=== PATIENT | female | born 1985 | race Two or more races ===

== ENCOUNTER 2019-07-15 10:24 | Emergency (ER) | payer OTHER ==
[2019-07-15 10:56] LABS: BILIRUBIN,URINE NEGATIVE (NEGATIVE); GLUCOSE, URINE (UA) NEGATIVE (NEGATIVE); KETONES,URINE (UA) NEGATIVE (NEGATIVE); LEUKOCYTE ESTERASE, URINE NEGATIVE (NEGATIVE); NITRITE,URINE NEGATIVE (NEGATIVE); OCCULT BLOOD,URINE TRACE-INTA (NEGATIVE); PH,URINE 5.5 PH (5.0-7.5); PROTEIN,URINE NEGATIVE (NEGATIVE); UROBILINOGEN,URINE 0.2 (NORMAL) E.U./dL (NORMAL)
[2019-07-15 10:57] LABS: BASOPHILS # (AUTO) 0.1 10^3/uL (0.0-0.1); BASOPHILS % (AUTO) 0.7 %; EOSINOPHILS # (AUTO) 0.1 10^3/uL (0.0-0.7); EOSINOPHILS % (AUTO) 0.6 %; LYMPHOCYTES # (AUTO) 2.1 10^3/uL (1.5-3.5); LYMPHOCYTES % (AUTO) 24.1 %; MEAN CORPUSCULAR HEMOGLOBIN 30.4 pg (27.0-31.0); MEAN CORPUSCULAR HGB CONC 33.7 g/dL (32.0-36.0); MEAN PLATELET VOLUME 9.4 fL (7.9-10.8); MONOCYTES # (AUTO) 0.5 10^3/uL (0.0-1.0); MONOCYTES % (AUTO) 6.1 %; NEUTROPHILS # (AUTO) 5.9 10^3/uL (1.5-6.6); PLT - PLATELET COUNT 319 10^3/uL (130-450); RED BLOOD COUNT 4.61 10^6/uL (4.20-5.40); RED CELL DISTRIBUTION WIDTH 12.4 % (12.0-15.0); WHITE BLOOD COUNT 8.7 x10^3/uL (4.8-10.8)
[2019-07-15 11:02] LABS: CLARITY,URINE CLEAR (CLEAR); HCG UR QUAL NEGATIVE
[2019-07-15 11:10] LABS: ALBUMIN 4.3 g/dL (3.2-5.5); ALBUMIN/GLOBULIN RATIO 1.2 (1.0-2.2); BILIRUBIN,TOTAL 0.6 mg/dL (0.2-1.0); CALCIUM 9.1 mg/dL (8.5-10.3); CREATININE 0.7 mg/dL (0.4-1.0); TOTAL PROTEIN 7.8 g/dL (6.7-8.2)
[2019-07-15] MEDS ORDERED: SODIUM CHLORIDE 0.9% 1,000 ML IV ONE (11:10)
--- NOTE | 2019-07-15 11:13 | ED Physician Documentation ---
History of Present Illness - Stated complaint Stated Complaint: LOWER BACK PX - Chief complaint Chief Complaint: Abd Pain - History obtained from History obtained from: Patient - Additonal information Additional information: There is a 33-year-old woman who presents with her from her physician's office for evaluation of a possible kidney stone. The patient started to get pain in her right flank 2 days ago she thought it was a muscle pain she was putting heat on it and her was massaging it she took a muscle relaxer last night did not seem to help and the pain was getting more severe today and wrapping around into her right abdomen. She says there is a constant dull ache but she will get intermittent sharp pains that are "unbearable". Now it is about a 3-4 out of 10. She denies any dysuria or hematuria. She has been nauseous but has not had vomiting or diarrhea. Denies with a last menstrual period of 3 weeks ago. She did get a shot of Toradol at her primary care provider's office. No coughing no sore throat, no fever. Denies abdominal surgeries. She does have a history of kidney stone about 15 years ago at that time she did not even know she had the stone she just passed it. Review of Systems Constitutional: denies: Fever Nose: denies: Rhinorrhea / runny nose Throat: denies: Sore throat Respiratory: denies: Cough GI: reports: Abdominal Pain, Nausea. denies: Vomiting : denies: Dysuria, Hematuria Musculoskeletal: reports: Back pain PD PAST MEDICAL HISTORY - Past Medical History Past Medical History: No - Past Surgical History Past Surgical History: No - Present Medications Home Medications: Ambulatory Orders Medication Instructions Recorded Confirmed Sumatriptan Succinate [Imitrex] 50 mg PO DAILY PRN 07/15/19 07/15/19 methocarbamoL [Robaxin] 500 mg PO Q6H PRN #30 tablet 07/15/19 - Allergies Allergies/Adverse Reactions: Allergies Allergy/AdvReac Type Severity Reaction Status Date / Time bacitracin Allergy Rash Verified 07/15/19 10:32 - Social History Does the pt smoke?: No Smoking Status: Never smoker Does the pt drink ETOH?: No Does the pt have substance abuse?: No - Immunizations Immunizations are current?: Yes - POLST Patient has POLST: No PD ED PE NORMAL - Vitals Vital signs reviewed: Yes - General General: Alert and oriented X 3, No acute distress, Well developed/nourished - HEENT HEENT: Atraumatic, PERRL, Moist mucous membranes, Other (No scleral icterus) - Cardiac Cardiac: RRR, No murmur, Strong equal pulses - Respiratory Respiratory: No respiratory distress, Clear bilaterally - Abdomen Abdomen: Normal bowel sounds, Soft, Non tender, Other (Limited by body habitus) - Derm Derm: Normal color, Warm and dry, No rash - Neuro Neuro: Alert and oriented X 3, med dir 2-12 intact, No motor deficit, No sensory deficit, Normal speech - Psych Psych: Normal mood, Normal affect Results - Vitals Vitals: Vital Signs - 24 hr 07/15/19 07/15/19 07/15/19 10:32 10:59 13:09 Temperature 36.7 C 37.1 C 37.1 C Heart Rate 97 92 85 Respiratory 16 18 18 Rate Blood Pressure 151/92 H 133/77 H 128/87 H O2 Saturation 96 98 100 07/15/19 13:40 Temperature 37 C Heart Rate 78 Respiratory 16 Rate Blood Pressure 129/73 O2 Saturation 99 Oxygen O2 Source Room air - Labs Labs: Laboratory Tests 07/15/19 07/15/19 07/15/19 10:38 10:40 10:52 WBC 8.7 RBC 4.61 Hgb 14.0 Hct 41.5 MCV 90.0 MCH 30.4 MCHC 33.7 RDW 12.4 Plt Count 319 MPV 9.4 Neut # (Auto) 5.9 Lymph # (Auto) 2.1 [place] # (Auto) 0.5 Eos # (Auto) 0.1 Baso # (Auto) 0.1 Absolute Nucleated RBC 0.00 Nucleated RBC % 0.0 Sodium 134 L Potassium 3.7 Chloride 102 Carbon Dioxide 21 Anion Gap 11.0 BUN 14 Creatinine 0.7 Estimated GFR (MDRD) 95 Glucose 100 Calcium 9.1 Total Bilirubin 0.6 AST 18 ALT 25 Alkaline Phosphatase 56 Total Protein 7.8 Albumin 4.3 Globulin 3.5 Albumin/Globulin Ratio 1.2 Lipase 26 Urine Color YELLOW Urine Clarity CLEAR Urine pH 5.5 Ur Specific [place] <=1.005 Urine Protein NEGATIVE Urine Glucose (UA) NEGATIVE Urine Ketones NEGATIVE Urine Occult Blood TRACE-INTA Urine Nitrite NEGATIVE Urine Bilirubin NEGATIVE Urine Urobilinogen 0.2 (NORMAL) Ur Leukocyte Esterase NEGATIVE Ur Microscopic Review NOT INDICATED Urine Culture Comments NOT INDICATED Urine HCG, Qual NEGATIVE - Rads (name of study) CT abd/pelvis Radiology: See rad report (no kidney stone) PD MEDICAL DECISION MAKING - ED course Complexity details: reviewed results, re-evaluated patient, d/w patient ED course: Patient was actually feeling better when she got here from the IM Toradol that she had received at the doctor's office. When I went back in to discuss the CT report she said the pain was starting to ramp back up back up to about a 6. Organ to put a lidocaine patch on of the CT did not show any evidence of kidney stone. Her white blood cell count is normal and renal functions normal. 1406: Patient was being discharged and sat up on the side of the bed was really pale said her pain was back up to an 8 out of 10. She is Cesar been given Robaxin orally and a cane patch been placed. She will be given morphine 4 mg and Zofran 4 mg IV. Departure - Departure Disposition: 01 Home, Self Care Clinical Impression: Back pain Qualifiers: Back pain location: low back pain Chronicity: acute Back pain laterality: right Sciatica presence: without sciatica Qualified Code(s): M54.5 - Low back pain Condition: Good Instructions: ED Back Care Tips, ED Exercises Lumbar Muscles, ED Sprain Strain Lumbar Follow-Up: [facility] [Provider Group] Prescriptions: methocarbamoL [Robaxin] 500 mg PO Q6H PRN #30 tablet PRN Reason: Spasms Comments: Ice your lower back or use the lidocaine patch. Do not use both so that you avoid burning the skin. Take ibuprofen 3 tablets every 8 hours over the food [id number]. With food. Take Robaxin up to 4 times a day as needed for muscle spasm and pain. Follow-up with your primary care provider if you continue to have back pain. The stretching exercises you have been provided are safe to do now.
--- NOTE | 2019-07-15 12:42 | CT Report ---
Reason: flank pain Procedure Date: 07/15/2019 Accession Number: [id number] / [id number] Procedure: CT - Abdomen/Pelvis WO CPT Code: Final Report FULL RESULT: EXAM: CT ABDOMEN AND PELVIS (CT KUB) EXAM DATE: 07/15/2019 12:15 PM. CLINICAL HISTORY: Flank pain. COMPARISONS: None. TECHNIQUE: Routine axial helical CT imaging was performed through the abdomen and pelvis without IV contrast. Reconstructions: Coronal and sagittal. In accordance with CT protocol optimization, one or more of the following dose reduction techniques were utilized for this exam: automated exposure control, adjustment of mA and/or KV based on patient size, or use of iterative reconstructive technique. FINDINGS: Lung Bases: Unremarkable. Right Kidney/Ureter: No stones, hydronephrosis, or hydroureter. No perinephric fat stranding. Left Kidney/Ureter: No stones, hydronephrosis, or hydroureter. No perinephric fat stranding. Other Solid Organs: Noncontrast images of the solid organs are grossly unremarkable. Gallbladder/Bile Ducts: Unremarkable. Peritoneal Cavity: No free fluid, free air or otto adenopathy. Bowel is grossly unremarkable. Normal appearance of the appendix. Pelvic Organs: No bladder stones or wall thickening. Noncontrast images of the visualized pelvic organs are unremarkable. Vasculature: Unremarkable. Other: None. IMPRESSION: No urinary tract stones or obstruction. RADIA
[2019-07-15] MEDS ORDERED: LIDOCAINE PATCH 5% TOP STA (13:26)
[2019-07-15] MEDS ORDERED: methocarbamoL 500 MG TABLET PO STA (13:29)
[2019-07-15] MEDS ORDERED: MORPHINE 2 MG/ML CARPUJECT IVP STA (14:05)
[2019-07-15] MEDS ORDERED: ONDANSETRON 4 MG/2 ML VIAL IVP STA (14:05)
[2019-07-15 14:38] VITALS: BP 139/86
== END 2019-07-15 14:47 | disposition home or self-care (01) ==
LOC: ED 10:24
DX: M54.5 Low back pain (principal)
CPT/HCPCS: 36415; 74176; 80053; 81003; 81025; 83690; 85025; 96361; 96374; 96375; 99284; A9270; 81001; 87086

== ENCOUNTER 2023-04-27 08:13 | Emergency (ER) | payer OTHER ==
[2023-04-27 08:36] VITALS: BP 154/96; O2SAT 100
--- NOTE | 2023-04-27 09:06 | XRAY Report ---
PROCEDURE: Chest 2 View X-Ray INDICATIONS: Cough TECHNIQUE: 2 views of the chest were acquired. COMPARISON: None. FINDINGS: Surgical changes and devices: None. Lungs and pleura: No pleural effusions or pneumothorax. Lungs are clear. Mediastinum: Mediastinal contours appear normal. Heart size is normal. Bones and chest wall: No suspicious bony lesions. Overlying soft tissues appear unremarkable. IMPRESSION: No acute cardiopulmonary process. Reviewed by: Dl Yuan MD on 04/27/2023 9:05 AM [facility] Approved by: Dl Yuan MD on 04/27/2023 9:05 AM [facility] Station ID: [id number]
[2023-04-27 09:28] LABS: CORONAVIRUS 229E-RESP PCR NOT DETECTED; CORONAVIRUS HKU1-RESP PCR NOT DETECTED; CORONAVIRUS NL63-RESP PCR NOT DETECTED; CORONAVIRUS OC43-RESP PCR NOT DETECTED; HUMAN METAPNEUMOVIRUS NOT DETECTED; RHINOVIRUS/ENTEROVIRUS NOT DETECTED; SARS-CoV-2 -RESP PCR PANEL NOT DETECTED
[2023-04-27 09:29] LABS: B. PARAPERTUSSIS- RESP PCR PAN NOT DETECTED; B. PERTUSSIS- RESP PCR PANEL NOT DETECTED; C. PNEUMONIAE- RESP PCR PANEL NOT DETECTED; INFLUENZA A- RESP PCR PANEL NOT DETECTED; INFLUENZA B - RESP PCR PANEL NOT DETECTED; M. PNEUMONIAE- RESP PCR PANEL NOT DETECTED; PARAINFLUENZA VIRUS 1 NOT DETECTED; PARAINFLUENZA VIRUS 2 NOT DETECTED; PARAINFLUENZA VIRUS 3 NOT DETECTED; PARAINFLUENZA VIRUS 4 NOT DETECTED; RSV- RESP PCR PANEL NOT DETECTED
--- NOTE | 2023-04-27 10:54 | ED Physician Documentation ---
PD HPI URI - Stated complaint Stated Complaint: SOA/COUGH - Chief complaint Chief Complaint: Resp - History obtained from History obtained from: Patient - History of Present Illness Timing - onset: How many days ago (5) Timing duration: Days (5) Timing details: Abrupt onset, Still present Associated symptoms: Chills, Nasal congestion, Productive cough, Dyspnea (with exac of her asthma.). 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 - Present Medications Home Medications: Ambulatory Orders Medication Instructions Recorded Confirmed Sumatriptan Succinate [Imitrex] 50 mg PO DAILY PRN 07/15/19 07/15/19 methocarbamoL [Robaxin] 500 mg PO Q6H PRN #30 tablet 07/15/19 Albuterol Sulf [Ventolin Hfa 2 - 3 puffs INH Q4HR PRN #1 each 04/27/23 Inhaler] Amoxicillin 500 mg PO TID #18 cap 04/27/23 Benzonatate [Tessalon] 100 mg PO TID PRN #20 cap 04/27/23 dexAMETHasone [Decadron] 4 mg PO DAILY #5 tablet 04/27/23 - Allergies Allergies/Adverse Reactions: Allergies Allergy/AdvReac Type Severity Reaction Status Date / Time bacitracin Allergy Rash Verified 07/15/19 10:32 - Social History Does the pt smoke?: No Smoking Status: Never smoker Does the pt drink ETOH?: No Does the pt have substance abuse?: No - Immunizations Immunizations are current?: Yes - POLST Patient has POLST: No PD ED PE NORMAL - Vitals Vital signs reviewed: Yes - General General: Alert and oriented X 3, No acute distress, Well developed/nourished - Neck Neck: Supple, no meningeal sign, No adenopathy - Cardiac Cardiac: RRR, No murmur - Respiratory Respiratory: No: Clear bilaterally (no coarse sounds. Exp wheezing and repetitive cough with deep breathing. ) - Abdomen Abdomen: Soft, Non tender - Derm Derm: Normal color, Warm and dry Results - Vitals Vitals: Oxygen O2 Source Room air - Labs Labs: Laboratory Tests 04/27/23 08:31 Nasal Adenovirus (PCR) NOT DETECTED Nasal B. parapertussis DNA (PCR) NOT DETECTED Nasal Coronavir 229E PCR NOT DETECTED Nasal Coronavir HKU1 PCR NOT DETECTED Nasal Coronavir NL63 PCR NOT DETECTED Nasal Coronavir OC43 PCR NOT DETECTED Nasal Enterovir/Rhinovir PCR NOT DETECTED Nasal Influenza B PCR NOT DETECTED Nasal Influenza A PCR NOT DETECTED Nasal Parainfluen 1 PCR NOT DETECTED Nasal Parainfluen 2 PCR NOT DETECTED Nasal Parainfluen 3 PCR NOT DETECTED Nasal Parainfluen 4 PCR NOT DETECTED Nasal RSV (PCR) NOT DETECTED Nasal B.pertussis DNA PCR NOT DETECTED Nasal C.pneumoniae (PCR) NOT DETECTED [place] Human Metapneumo PCR NOT DETECTED Nasal M.pneumoniae (PCR) NOT DETECTED Nasal SARS-CoV-2 (PCR) NOT DETECTED PD Medical Decision Making - ED course Complexity details: reviewed results (chest xray without pneumonia. Viral panel negatvie. ), considered differential, d/w patient Departure - Departure Disposition: 01 Home, Self Care Clinical Impression: Upper respiratory infection, Exacerbation of asthma, Dyspnea Condition: Stable Prescriptions: Albuterol Sulf [Ventolin Hfa Inhaler] 2 - 3 puffs INH Q4HR PRN #1 each PRN Reason: Shortness Of Air/Wheezing Amoxicillin 500 mg PO TID #18 cap dexAMETHasone [Decadron] 4 mg PO DAILY #5 tablet Benzonatate [Tessalon] 100 mg PO TID PRN #20 cap PRN Reason: Cough Comments: Your x-ray is clear without any signs of pneumonia. Presume viral upper respiratory infection initially. It has been exacerbating your asthma so we can treat with the inhaler as well as anti-inflammatory and medication for cough. Given the worsening of your cough with now productive sputum, consideration would be a secondary bronchitis as well. We can add antibiotic for that. I sent your prescriptions to your preferred pharmacy. Use the inhaler 2 to 3 puffs 4 times daily regularly for the next several days to week at least. Other medications as prescribed. Forms: PCP List, Activity restrictions Discharge Date/Time: 04/27/23 12:28
[2023-04-27] MEDS ORDERED: AMOXICILLIN 250 MG CAPSULE PO STA (11:08)
[2023-04-27] MEDS ORDERED: ALBUTEROL 1 PUFF INH STA (11:08)
[2023-04-27] MEDS ORDERED: dexAMETHasone 4 MG TABLET PO STA (11:08)
== END 2023-04-27 12:28 | disposition home or self-care (01) ==
LOC: ED 08:13
DX: J45.901 Unspecified asthma with (acute) exacerbation (principal); J06.9 Acute upper respiratory infection, unspecified; Z20.822 Contact with and (suspected) exposure to COVID-19
CPT/HCPCS: 71046; 87633; 94640; 94664; 99284; A9270; J8540

== ENCOUNTER 2023-09-06 15:37 | Outpatient (CLI) | payer OTHER ==
--- NOTE | 2023-09-06 17:55 | XRAY Report ---
PROCEDURE: Knee Standing LT INDICATIONS: LEFT KNEE SPRAIN/CONTUSION TECHNIQUE: 4 views of the knee COMPARISON: None. FINDINGS: Bones: No fractures or dislocations. Normal alignment. Mild medial compartment joint space narrowing . Patellofemoral and lateral compartments are maintained. No suspicious bony lesions. Soft tissues: Mild knee joint effusion. No suspicious soft tissue calcifications or masses. IMPRESSION: 1.No acute bony abnormality. If there remains a high clinical concern for fracture, consider cross-se ctional imaging now. If pain persists, consider repeat x-ray in 10-14 days or cross-sectional imaging . 2.Mild medial compartment joint space narrowing. Reviewed by: Kailash Tanner MD on 09/06/2023 5:54 PM PDT Approved by: Kailash Tanner MD on 09/06/2023 5:54 PM PDT Station ID: [id number]
== END 2023-09-06 15:38 | disposition home or self-care (01) ==
LOC: DI 15:37
PROVIDERS: ATTEND Registered Nurse
DX: S83.8X2A Sprain of other specified parts of left knee, initial encounter (principal); S80.02XA Contusion of left knee, initial encounter

== ENCOUNTER 2023-11-19 22:18 | Emergency (ER) | payer OTHER ==
[2023-11-19 22:35] VITALS: O2SAT 100
--- NOTE | 2023-11-19 23:55 | ED Physician Documentation ---
History of Present Illness - Stated complaint Stated Complaint: HEART PALPITATIONS/SOA - Chief complaint Chief Complaint: Cardiac - History obtained from History obtained from: Patient - Additonal information Additional information: The pt comes to the ED with CC of palpitations that started this morning. She states she feels a little anxious and short of breath. She still feels the palpitations. No chest pain. No NV. No recent illness. 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 - Present Medications Home Medications: Ambulatory Orders Medication Instructions Recorded Confirmed Sumatriptan Succinate [Imitrex] 50 mg PO DAILY PRN 07/15/19 07/15/19 methocarbamoL [Robaxin] 500 mg PO Q6H PRN #30 tablet 07/15/19 Albuterol Sulf [Ventolin Hfa 2 - 3 puffs INH Q4HR PRN #1 each 04/27/23 Inhaler] Amoxicillin 500 mg PO TID #18 cap 04/27/23 Benzonatate [Tessalon] 100 mg PO TID PRN #20 cap 04/27/23 dexAMETHasone [Decadron] 4 mg PO DAILY #5 tablet 04/27/23 - Allergies Allergies/Adverse Reactions: Allergies Allergy/AdvReac Type Severity Reaction Status Date / Time bacitracin Allergy Rash Verified 11/19/23 22:29 - Social History Does the pt smoke?: No Smoking Status: Never smoker Does the pt drink ETOH?: No Does the pt have substance abuse?: No - Immunizations Immunizations are current?: Yes - POLST Patient has POLST: No PD ED PE NORMAL - Vitals Vital signs reviewed: Yes - General General: Alert and oriented X 3, No acute distress, Well developed/nourished - HEENT HEENT: Atraumatic, PERRL, EOMI, Moist mucous membranes - Neck Neck: Supple, no meningeal sign - Cardiac Cardiac: RRR, No murmur, Strong equal pulses - Respiratory Respiratory: No respiratory distress, Clear bilaterally - Abdomen Abdomen: Soft, Non tender, Non distended - Derm Derm: Normal color, Warm and dry, No rash - Extremities Extremities: No deformity, No tenderness to palpate, No edema, No calf tenderness / cord - Neuro Neuro: Other (alert, grossly intact) - Psych Psych: Normal mood, Normal affect Results - Vitals Vitals: Oxygen O2 Source Room air - EKG (time done) 2224 EKG releavant findings:: EKG personally interpreted by author of this note. Relevant findings are: Rate: Rate (enter#) (74) Rhythm: NSR [place]: Normal Intervals: Normal NE QRS: Normal Ischemia: Normal ST segments Compare to prior EKG: Old EKG unavailable Computer interpretation: Agree with computer PD Medical Decision Making - ED course Complexity details: reviewed results, re-evaluated patient, considered differential, d/w patient ED course: The pt was well-appearing, and without any findings on exam or EKG, despite the sensation of palpitations. She also had no evidence of a DVT/PE. I felt she was stable for d/c home. We have discussed the need for follow-up with her PCP. She does not wish any treatment for anxiety at this time. Departure - Departure Disposition: Home, Self Care Clinical Impression: Palpitations with regular cardiac rhythm Adverse effects of medication Qualifiers: Encounter type: initial encounter Qualified Code(s): T50.905A - Adverse effect of unspecified drugs, medicaments and biological substances, initial encounter Condition: Stable Instructions: ED Palpitations Comments: Your EKG looks greatyou have a regular, normal rhythm with a normal rate. Your vital signs also look fairly good. Your blood pressure was slightly elevated but this could also be from discomfort. It is possible that your new medications and the Imitrex do not agree In your system and although you are not having a dangerous reaction, you should talk to your primary doctor about whether perhaps changing one or more the medications would be a good idea. You should definitely get the barium swallow that you are scheduled for this week, and you can also talk to your doctor about whether event monitoring or a stress test would be in order at some point. You do not have symptoms currently that are concerning for heart attack or any other serious condition. Please schedule the next available appointment with your primary doctor. Forms: PCP List Discharge Date/Time: 11/19/23 23:57
[2023-11-20 00:09] VITALS: BP 138/88
== END 2023-11-19 23:57 | disposition home or self-care (01) ==
LOC: ED 22:18
DX: R00.2 Palpitations (principal); F41.9 Anxiety disorder, unspecified; R03.0 Elevated blood-pressure reading, without diagnosis of hypertension; T50.905A Adverse effect of unspecified drugs, medicaments and biological substances, initial encounter
CPT/HCPCS: 93005; 99283